=== PATIENT | female | born 1995 | race Caucasian/White ===

== ENCOUNTER 2018-08-20 09:41 | Emergency (ER) | payer OTHER ==
--- NOTE | 2018-08-20 10:10 | ED ---
Allergic Reaction/Systemic - HPI Summary HPI Summary: Pt is a 23 y/o female who presents to the ED c/o throat pain. Around 8:15 this morning she began to have pruritus of her throat after eating a granola bar. Pt has never had this granola bar before, and states the only new ingredient is hemp seed. About 30 minutes later she began to have chills, N/V, and dizziness which have now resolved. Pt also c/o redness and pruritus of her neck. Pain is rated a 5/10 in severity. She notes shes had a similar reaction in the past after eating corn bread. - History of Current Complaint Chief Complaint: EDAllergicReaction Time Seen by Provider: 08/20/18 09:59 Hx Obtained From: Patient Onset/Duration: Gradual Onset, Started hours ago - 8:15, Still Present Timing: Constant Severity Currently: Moderate Pain Intensity: 5 Pain Scale Used: 0-10 Numeric Location: Discrete @ - neck, throat Character: Pruritus Aggravating Factor(s): Other - eating granola bar Associated Signs And Symptoms: Positive: Nausea, Vomiting - Allergies/Home Medications Allergies/Adverse Reactions: Allergies Allergy/AdvReac Type Severity Reaction Status Date / Time No Known Allergies Allergy Verified 08/20/18 09:43 Home Medications: Home Medications Loratadine [Claritin 10 MG CAP] 10 mg PO SEE INSTRUCTIONS PRN 08/20/18 [History Confirmed 08/20/18] PMH/Surg Hx/FS Hx/Imm Hx Endocrine/Hematology History: Denies: Hx Diabetes Musculoskeletal History: Reports: Hx Scoliosis Infectious Disease History: No Infectious Disease History: Denies: Traveled Outside the [place] in Last 30 Days - Family History Known Family History: Negative: Blood Disorder - Social History Alcohol Use: None Hx Substance Use: No Substance Use Type: Reports: None Hx Tobacco Use: No Smoking Status (MU): Never Smoked Tobacco Review of Systems Positive: Chills Positive: Other - pruritic throat Positive: Vomiting, Nausea Positive: Rash - neck - red, pruritic Neurological: Other - Dizziness All Other Systems Reviewed And Are Negative: Yes Physical Exam - Summary Physical Exam Summary: GENERAL: Patient is a well-developed and nourished F who is lying comfortable in the stretcher. Patient is not in any acute respiratory distress. HEAD AND FACE: Normocephalic EYES: PERRLA, EOMI x 2. EARS: Hearing grossly intact. MOUTH: Oropharynx within normal limits. NECK: Supple, trachea is midline, no adenopathy, no JVD, no carotid bruit. CHEST: Symmetric, no tenderness at palpation LUNGS: Clear to auscultation bilaterally. No wheezing or crackles. CVS: Regular rate and rhythm, S1 and S2 present, no murmurs or gallops appreciated. ABDOMEN: Soft, non-tender. Bowel sounds are normal. No abnormal abdominal pulsations. EXTREMITIES: Full ROM in all major joints, no edema, no cyanosis or clubbing. NEURO: Alert and oriented x 3. No acute neurological deficits. Speech is normal and follows commands. SKIN: Dry and warm. Hives on neck. Triage Information Reviewed: Yes Vital Signs On Initial Exam: Initial Vitals Temp Pulse Resp BP Pulse Ox 99.1 F 110 16 132/89 96 08/20/18 09:42 08/20/18 09:42 08/20/18 09:42 08/20/18 09:42 08/20/18 09:42 Vital Signs Reviewed: Yes Diagnostics - Vital Signs Vital Signs Temp Pulse Resp BP Pulse Ox 08/20/18 09:42 99.1 F 110 16 132/89 96 - Laboratory Lab Statement: Any lab studies that have been ordered have been reviewed, and results considered in the medical decision making process. Re-Evaluation - Re-Evaluation First Eval Re-Evaluation Time: 11:26 Change: Improved Comment: Pt feels better. Allergic Reaction Course/Dx - Course Course Of Treatment: Pt is a 23 y/o female who presents to the ED c/o throat pruritus, chills, N/V, dizziness, and neck rash after eating a granola bar with hemp seeds. A physical exam revealed hives on neck. In the course pt received the allergy cocktail, which improved her symptoms. Final dx of allergic reaction. I discussed results with patient, and she reports feeling better. She is hemodynamically stable and safe for discharge. Strict return precautions given and she will otherwise follow up with her PCP. - Diagnoses Provider Diagnoses: Allergic reaction Discharge - Sign-Out/Discharge Documenting (check all that apply): Patient Departure - Discharge Patient Received Moderate/Deep Sedation with Procedure: No - Discharge Plan Condition: Improved Disposition: HOME Prescriptions: diPHENhydraMINE PO* [Benadryl PO 25 MG TAB*] 25 mg PO Q6H PRN #24 tab PRN Reason: Allergy Symptoms EPINEPHrine [Epipen 2-Sean] 0.3 mg IM ONCE #1 inj Famotidine TAB* [Pepcid 20 MG TAB*] 20 mg PO BID #20 tab predniSONE [Prednisone 20 MG TAB] 40 mg PO DAILY #8 tablet Patient Education Materials: Food Allergy (ED), Allergy Testing (ED) Referrals: [facility] [place] [facility]ERR[facility] [Outside] (1-3 days) Additional Instructions: RETURN TO THE EMERGENCY DEPARTMENT FOR CHANGING OR WORSENING SYMPTOMS. - Billing Disposition and Condition Condition: IMPROVED Disposition: Home - Attestation Statements Document Initiated by Scribe: Yes Documenting Scribe: Jeniffer Loredo Provider For Whom Scribe is Documenting (Include Credential): Essence Bergeron MD Scribe Attestation: Jeniffer Delgadillo scribed for Essence Bergeron MD on 08/21/18 at 0727. Scribe Documentation Reviewed: Yes Provider Attestation: The documentation as recorded by the Jeniffer muir accurately reflects the service I personally performed and the decisions made by Essence zimmerman MD Status of Scribe Document: Viewed
[2018-08-20] MEDS ORDERED: methylPREDNISolone 125 MG* 2 ML VIAL ONE (10:19)
[2018-08-20] MEDS ORDERED: Famotidine IV* 10 MG/ML 2 ML (20 mg) ONE (10:19)
[2018-08-20] MEDS ORDERED: diPHENhydraMINE IV* 50 MG/ML 1 ml VIAL (BENADRYL) ONE (10:19)
[2018-08-20 12:16] VITALS: BP 128/80
== END 2018-08-20 12:16 | disposition home or self-care (01) ==
LOC: ED 09:41
DX: T78.40XA Allergy, unspecified, initial encounter (principal); X58.XXXA Exposure to other specified factors, initial encounter; M41.9 Scoliosis, unspecified
CPT/HCPCS: 96374; 96375; 99283; J1200; J2930